=== PATIENT | male | born 1980 | race Caucasian/White ===

== ENCOUNTER 2021-02-28 09:22 | Emergency (ER) | payer OTHER, SELFPAY ==
--- NOTE | ~2021-02-28 | XR_ITS ---
EXAMINATION: XR FOREARM and hand and wrist, RIGHT CLINICAL INFORMATION: Pain post fall COMPARISON: Previous right hand and wrist x-ray July 2015 TECHNIQUE: AP and lateral views of the right forearm and 4 views of the right hand and wrist were obtained. FINDINGS: Forearm: Bone alignment is normal. No fracture or dislocation is seen. Joint spaces are normal. Soft tissues are normal. Right hand and wrist: There is a screw seen in the scaphoid bone. There is an old healed scaphoid fracture. There are well-corticated soft tissue ossifications projecting over the dorsal wrist likely related to old trauma as well. No acute fracture or dislocation is seen. There are mild degenerative changes at the radiocarpal joint and first FDC joint.. XR/XR hand wrist RT IMPRESSION: No acute fracture seen. ORIF of old scaphoid fracture. Well-corticated soft tissue ossifications projecting over the dorsal wrist likely related to old trauma.
--- NOTE | ~2021-02-28 | XR_ITS ---
EXAMINATION: XR FOREARM and hand and wrist, RIGHT CLINICAL INFORMATION: Pain post fall COMPARISON: Previous right hand and wrist x-ray July 2015 TECHNIQUE: AP and lateral views of the right forearm and 4 views of the right hand and wrist were obtained. FINDINGS: Forearm: Bone alignment is normal. No fracture or dislocation is seen. Joint spaces are normal. Soft tissues are normal. Right hand and wrist: There is a screw seen in the scaphoid bone. There is an old healed scaphoid fracture. There are well-corticated soft tissue ossifications projecting over the dorsal wrist likely related to old trauma as well. No acute fracture or dislocation is seen. There are mild degenerative changes at the radiocarpal joint and first MCFP joint.. XR/XR forearm RT 2V IMPRESSION: No acute fracture seen. ORIF of old scaphoid fracture. Well-corticated soft tissue ossifications projecting over the dorsal wrist likely related to old trauma.
[2021-02-28 09:29] VITALS: BP 152/92; PULSE 70; RESP 16; TEMP 36.7; O2SAT 97; BMI 25.0
--- NOTE | 2021-02-28 09:36 | ED.EXTPRO ---
HPI - Extremity Problem General Chief complaint: Extremity Injury, Upper Stated complaint: HAND INJURY Time Seen by Provider: 02/28/21 09:32 Source: patient Mode of arrival: ambulatory Limitations: no limitations History of Present Illness HPI Narrative: 40-year-old male with a past medical history of a scaphoid fracture with a screw placed here with complaints of right wrist pain after a FOOSH last evening. Related Data Previous Rx's Medication Instructions Recorded ketorolac 10 mg PO Q8H PRN #10 tab 02/28/21 Allergies Allergy/AdvReac Type Severity Reaction Status Date / Time No Known Allergies Allergy Unverified 04/22/20 18:32 Review of Systems Review of Systems: Yes all other systems are reviewed and are negative Constitutional: Constitutional: Reports no additional constitutional complaints, Denies body ache(s), Denies chills, Denies fever(s), Denies headache(s) and Denies weakness Eyes: Eyes: Reports no additional eye complaints and Denies change in vision ENT: Reports system reviewed and no additional complaints, except as documented, Denies dizziness, Denies headache(s), Denies nasal congestion, Denies nasal discharge and Denies neck pain Cardiovascular: Cardiovascular: Reports no additional cardiovascular complaints, Denies chest pain, Denies leg edema and Denies dyspnea Respiratory: Respiratory: Reports no additional respiratory complaints, Denies cough and Denies dyspnea Gastrointestinal: Gastrointestinal: Reports no additional gastrointestinal complaints, Denies abdominal pain, Denies diarrhea, Denies nausea and Denies vomiting Genitourinary: Genitourinary: Denies urinary incontinence Musculoskeletal: Musculoskeletal: Reports no additional musculoskeletal complaints, Denies back pain, Reports arthralgias, Reports joint swelling, Reports limited range of motion, Denies neck pain, Denies numbness and Denies tingling Integumentary/Breasts: Skin/Breast: Reports system reviewed and no additional complaints, except as docu and Denies rash Neurologic: Reports system reviewed and no additional complaints, except as documented, Denies Abnormal speech present, Denies dizziness, Denies headache(s), Denies numbness, Denies tingling and Denies weakness PMFSH Past Medical History Attestation statement: The following information was validated with the patient. Source: old records reviewed and nursing notes reviewed Medical History (Updated 02/28/21 @ 10:14 by Carol Graves NP) Hepatitis C Surgical History H/O wrist surgery Social History Social History Advance Directives: Yes Advance Directives Information Provided: No Advance Directives on File: No Physical Exam Vital Signs: Vital Signs: Last Vital Signs Temp 98.0 F 02/28/21 09:29 Pulse 70 02/28/21 09:29 Resp 16 02/28/21 09:29 BP 152/92 H 02/28/21 09:29 Pulse Ox 97 02/28/21 09:29 Body Mass Index 25.0 Const: General: cooperative, healthy appearing, comfortable and no acute distress Orientation/consciousness: patient oriented x3 Limitations: no limitations HENMT: Head: Yes normal to inspection Ears: hearing grossly normal bilaterally General nose exam: Normal external nose present Face and sinus: Yes normal facial exam Mouth: Normal oral and palatal mucosa present Throat: Yes posterior oropharynx normal Eyes: General: appearance normal, both eyes and all related structures Pupils: Equal, round and reactive pupils present Neck: Neck: Yes normal visual inspection Chest: Chest palpation & inspection: normal inspection of the chest Resp: Effort & Inspection: normal respiratory effort Auscultation: clear to auscultation bilaterally Cardio: Rate: regular rate Rhythm: regular rhythm Peripheral pulses: Peripheral pulses 2+ throughout GI: Inspection: Yes normal to inspection Palpation (GI): Soft to palpation and nontender Auscultation: normal bowel sounds Back/Spine/Pelvis: Thoracic/Lumbar Spine: thoracic and lumbar spine normal to inspection Skin: General skin exam: no rashes or lesions noted Neuro: General: patient oriented x3, no focal motor deficits and normal sensation to monofilament Cranial nerves: Yes Equal, round and reactive pupils present Cognition (Neuro): normal cognition Speech: No Abnormal speech present Gait exam (Neuro): Normal gait present Motor exam (neuro): 5/5 motor strength present throughout Extrem: Other: Swelling and tenderness over the wrist with focal tenderness over the snuffbox. Limited range of motion due to pain General: Yes normal to inspection Course Course Course Narrative: Patient had a FOOSH injury last evening now complaining of right wrist and hand pain. Will check x-ray and provide analgesia. 1030-x-ray shows no acute finding. The patient does have snuffbox tenderness and therefore he was placed in a thumb spica splint. Will have him follow-up with Orthopedics. Reviewed worrisome signs symptoms and when to return to the emergency department. Comfortable discharge home. Procedures Procedure Narrative Procedure Narrative: Thumb spica splint MDM - Extremity (Nontraumatic) Medical Records Attestation: I reviewed the patient's medical records. Lab Data Attestation: I reviewed the patient's lab results. Imaging Data right hand/wrist/FA xray: Attestation: I personally reviewed and interpreted this imaging study as follows: Radiologist's impression: EXAMINATION: XR FOREARM and hand and wrist, RIGHT CLINICAL INFORMATION: Pain post fall COMPARISON: Previous right hand and wrist x-ray July 2015 TECHNIQUE: AP and lateral views of the right forearm and 4 views of the right hand and wrist were obtained. FINDINGS: Forearm: Bone alignment is normal. No fracture or dislocation is seen. Joint spaces are normal. Soft tissues are normal. Right hand and wrist: There is a screw seen in the scaphoid bone. There is an old healed scaphoid fracture. There are well-corticated soft tissue ossifications projecting over the dorsal wrist likely related to old trauma as well. No acute fracture or dislocation is seen. There are mild degenerative changes at the radiocarpal joint and first [employer] joint.. XR/XR forearm RT 2V IMPRESSION: No acute fracture seen. ORIF of old scaphoid fracture. Well-corticated soft tissue ossifications projecting over the dorsal wrist likely related to old trauma. Discharge Plan Discharge Clinical Impression: Sprain and strain of wrist Patient Disposition: Home, Self-Care Instructions: Wrist Sprain (ED) Additional Instructions: Your x-rays showed no new findings. However, due to the area of your pain we placed you in a splint. This needs to stay on at all times. Follow-up with orthopedics this week. Prescriptions: New ketorolac 10 mg tablet 10 mg PO Q8H PRN (Reason: pain) Qty: 10 RF: 0 Referrals: Neha Brock MD [Physician] - 2 days Stand Alone Forms: Work/School Release Interventions: ED Discharge Assessment Last Done: 02/28/21 10:46 Discharge Date/Time: 02/28/21 10:47
[2021-02-28] MEDS: Ketorolac Tromethamine 15 MG/ML VIAL 30 MG IM (10:01)
== END 2021-02-28 10:47 | disposition home or self-care (01) ==
PROVIDERS: Emergency Provider Emergency Medicine Emergency Medical Services; PCP Internal Medicine
DX: S63.501A Unspecified sprain of right wrist, initial encounter (principal); S66.911A Strain of unspecified muscle, fascia and tendon at wrist and hand level, right hand, initial encounter; W18.30XA Fall on same level, unspecified, initial encounter; Y93.9 Activity, unspecified; Y92.9 Unspecified place or not applicable; Y99.9 Unspecified external cause status
CPT/HCPCS: 29125; 73090; 73110; 73130; 96372; 99283; 99284; J1885

== ENCOUNTER → 2021-03-08 10:16 | Outpatient (BNVA) | payer OTHER, SELFPAY | PROVIDERS: Visit Provider Physician Assistant | DX: S63.501A Unspecified sprain of right wrist, initial encounter (principal) | CPT/HCPCS: 99202 ==

== ENCOUNTER 2024-03-20 23:05 | Emergency (ER) | payer OTHER, SELFPAY ==
--- NOTE | ~2024-03-20 | XR_ITS ---
EXAMINATION: XR LUMBOSACRAL SPINE CLINICAL INFORMATION: Pain. COMPARISON: None available. TECHNIQUE: Three views of the lumbosacral spine. FINDINGS: The alignment is normal. There is mild L4-L5 and L5-S1 disc degenerative change with mild loss of disc space, mild endplate change and osteophyte formation particularly at L5-S1 anteriorly. The bone mineralization is normal. No fracture is seen. The soft tissues are unremarkable XR/XR lumbar spine 2-3V IMPRESSION: Mild degenerative disc disease at L4-L5 and L5-S1.
[2024-03-20 23:13] VITALS: BP 122/70; PULSE 88; RESP 16; TEMP 37.2; O2SAT 95; BMI 24.6
--- NOTE | 2024-03-20 23:44 | ED.BACK ---
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 no paresthesia no lower extremity weakness pain is more diffuse in the back no bladder or bowel involvement no prior history Related Data Previous Rx's ?Medication ?Instructions ?Recorded ketorolac 10 mg tablet 10 mg PO Q8H PRN pain #10 tabs 02/28/21 cyclobenzaprine 10 mg tablet 10 mg PO Q8H #20 tabs 03/21/24 tramadol 50 mg tablet 50 mg PO Q6H PRN pain #20 tabs 03/21/24 Allergies Allergy/AdvReac Type Severity Reaction Status Date / Time No Known Allergies Allergy Verified 03/20/24 23:14 Review of Systems Review of Systems: Yes all other systems are reviewed and are negative PMF Past Medical History Medical History Hepatitis C Surgical History H/O wrist surgery Social History Social History Advance Directives: No Advance Directives Information Provided: No Current occupational status: employed 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 Oriented X3. No acute distress. Eyes: PERRLA, No Nystagmus ENT: Pharynx normal. Oral Mucosa moist Neck: Normal inspection. Neck supple. CVS: Normal heart rate and rhythm. Pulses normal. Respiratory: No respiratory distress. Equal air entry bilateral, no wheezing/rales/rhonchi Abdomen: Soft and nontender. Bowel sounds are present, no mass palpable, no CVA tenderness baCK: DIFFUSE LUMBAR TENDERNESS PARASPINAL Skin: Skin warm and dry. Normal skin color. Normal skin turgor. Extremities: No lower extremity edema. No calf tenderness Neuro: Oriented X 3. No motor deficit. No sensory deficit.No cerebellar signs , cranial nerves II-XII intact NO MOTOR WEAKNESS SLR NEGATIVE BILATERAL Medications Administered Discontinued Medications Generic Name Dose Route Start Last Admin Trade Name Freq PRN Reason Stop Dose Admin Cyclobenzaprine HCl 10 mg 03/20/24 23:56 03/21/24 01:09 Cyclobenzaprine Hcl 10 Mg Tablet PO 03/20/24 23:57 10 mg ONCE ONE Administration Morphine Sulfate 15 mg 03/20/24 23:56 03/21/24 01:09 Morphine Sulfate Immed Release 15 Mg Tablet PO 03/20/24 23:57 15 mg ONCE ONE Administration Medical Decision Making Medical Decision Making [facility] Narrative: Patient with lower lumbar strain x-ray negative for acute no neurological deficits will discharge patient home on muscle relaxant pain medication Radiology Impression Discussion of test interpretation with radiology: I have reviewed the radiologist's reading. Radiologist Impression: XR/XR lumbar spine 2-3V IMPRESSION: Mild degenerative disc disease at L4-L5 and L5-S1. Discharge Plan Discharge Clinical Impression: Strain of lumbar region Patient Disposition: Home, Self-Care Instructions: Low Back Strain (ED) Additional Instructions: Take pain medication muscle relaxant as prescribed Follow with PCP if not better Prescriptions: New cyclobenzaprine 10 mg tablet 10 mg PO Q8H Qty: 20 0RF tramadol 50 mg tablet 50 mg PO Q6H PRN (Reason: pain) Qty: 20 0RF No Action ketorolac 10 mg tablet 10 mg PO Q8H PRN (Reason: pain) Qty: 10 0RF Print Language: Slovenian
[2024-03-21] MEDS: Morphine Sulfate Immed Release 15 MG TABLET PO (01:09)
[2024-03-21] MEDS: Cyclobenzaprine HCl 10 MG TABLET PO (01:09)
[2024-03-21 01:33] VITALS: BP 117/64; PULSE 55; RESP 16; O2SAT 100
[2024-03-21 02:32] VITALS: BP 117/64; PULSE 55; RESP 16; TEMP 36.6; O2SAT 100
== END 2024-03-21 01:57 | disposition home or self-care (01) ==
PROVIDERS: Emergency Provider Internal Medicine
DX: S39.012A Strain of muscle, fascia and tendon of lower back, initial encounter (principal); X50.0XXA Overexertion from strenuous movement or load, initial encounter; X50.9XXA Other and unspecified overexertion or strenuous movements or postures, initial encounter; Y93.89 Activity, other specified; Y92.89 Other specified places as the place of occurrence of the external cause; Y99.0 Civilian activity done for income or pay
CPT/HCPCS: 72100; 99283; 99284